=== PATIENT | male | born 1945 | race Caucasian/White ===

== ENCOUNTER 2017-11-30 18:58 | Observation (INO) | payer OTHER ==
[~2017-11-30] VITALS: Ht 180.3 cm; Wt 80.4 kg
[2017-11-30 19:30] LABS: HEMATOCRIT 43.2 % (38.0-50.0); HEMOGLOBIN 15.4 G/DL (12.5-16.6); MCHC 35.6 G/DL (30.0-36.0); MCV 89.8 FL (86-99); PLATELET COUNT 177 K/uL (156-360); RBC DIS.WIDTH-SD 39.5 % (39-53); RED BLOOD COUNT 4.81 M/uL (4.00-5.50); WHITE BLOOD COUNT 6.8 K/uL (4.1-10.2)
[2017-11-30 19:42] LABS: CHLORIDE 105 mEq/L (99-109); POTASSIUM 3.8 mEq/L (3.7-5.4); SODIUM 140 mEq/L (136-147)
[2017-11-30 19:44] LABS: GLUCOSE 76 mg/dL (70-99)
[2017-11-30 19:48] LABS: CREATININE 0.9 mg/dL (0.6-1.3); GFR ESTIMATE (CALCULATED) > 59 mL/min/ (58.99-99999)
[2017-11-30 19:49] LABS: UREA NITROGEN (BUN) 17 mg/dL (9-23)
[2017-11-30] MEDS ORDERED: MULTI VITAMIN1 EACH PO (22:44)
[2017-11-30] MEDS ORDERED: LO-DOSE ASPIRIN81 M2 PO (22:44)
[2017-11-30] MEDS ORDERED: MEVACOR10 M1 PO (22:44)
[2017-12-01 01:09] VITALS: BP 139/73
[2017-12-01 03:47] VITALS: BP 120/64
[2017-12-01 07:12] VITALS: BP 138/76
[2017-12-01] MEDS ORDERED: ANTIVERT25 MG PO (11:45)
== END 2017-12-01 13:05 | disposition home or self-care (01) ==
LOC: EME 18:58 → EDOF 23:28 → ENRESERV 23:31 → 4SOUTH 12-01 00:54
DX: R42 Dizziness and giddiness (principal); E78.5 Hyperlipidemia, unspecified; J30.9 Allergic rhinitis, unspecified; R11.0 Nausea; I34.1 Nonrheumatic mitral (valve) prolapse; R09.82 Postnasal drip; Z82.49 Family history of ischemic heart disease and other diseases of the circulatory system; Z80.1 Family history of malignant neoplasm of trachea, bronchus and lung; Z88.2 Allergy status to sulfonamides
CPT/HCPCS: 70450; 70551; 80048; 85027; 93005; 99281; 99285; G0378; G8978 GP CH; G8979 GP CH; G8980 GP CH